=== PATIENT | male | born 1965 | race American Indian/Alaskan Native ===

== ENCOUNTER 2016-12-21 11:12 | Outpatient (CLI) | payer BC ==
--- NOTE | 2016-12-23 10:37 | Vascular Lab Report ---
LOWER EXTREMITY VENOUS DUPLEX: REASON FOR EXAM: Pain and swelling of the lower extremities. COMMENTS ON THE RIGHT: All veins visualized are freely compressible without evidence of internal echogenicity. Flow is spontaneous and phasic throughout. Greater saphenous vein incompetence is noted at the saphenofemoral junction and throughout the greater saphenous vein. The greater saphenous vein measures at about 5 mm in the proximal calf COMMENTS ON THE LEFT: Chronic nonocclusive deep venous thrombosis is noted in the femoral and common femoral veins. Incompetent greater saphenous vein is noted of the saphenofemoral junction and throughout its course. It measures about 6 mm in the proximal calf. The remaining veins visualized are freely compressible without evidence of internal echogenicity. Spontaneous and phasic flow is present proximally. IMPRESSION: Chronic Deep venous thrombosis in the left lower extremity. Bilateral incompetent greater saphenous vein.
== END 2016-12-21 11:13 | disposition home or self-care (01) ==
LOC: VAS 11:12
PROVIDERS: ATTEND Surgery Vascular Surgery
DX: I82.512 Chronic embolism and thrombosis of left femoral vein (principal); I87.2 Venous insufficiency (chronic) (peripheral); I87.002 Postthrombotic syndrome without complications of left lower extremity
CPT/HCPCS: 93970

== ENCOUNTER 2017-05-01 09:59 | Day surgery (SDC) | payer BC ==
[~2017-05-01 09:59] MED LIST: ANCEF/STERILE WATER 2 GM/20 ML 2 GM/20 ML SYRINGE IV NR; NACL 0.9% 1000 ML 1,000 ML IV SCH
[2017-05-01 10:55] LABS: Basophils % (Auto) 1.4 % (0.0-1.8); Eosinophils % (Auto) 2.1 % (0.0-4.3); Hematocrit 44.5 % (35.5-45.6); Mean Corpuscular HGB Conc 34 % (32-34); Mean Corpuscular Hemoglobin 30 pg (28-32); Mean Corpuscular Volume 89 fl (84-94); Platelet Count 170 K/mm3 (140-440); Red Cell Distribution Width 14.7 % (13.2-15.2)
[2017-05-01] MEDS ORDERED: NACL 0.9% 500 ML 500 ML IV SCH (11:00)
[2017-05-01 11:06] LABS: Anion Gap 16 mmol/L; BUN/Creatinine Ratio 18; Blood Urea Nitrogen 25 mg/dL (9-20); Carbon Dioxide 26 mmol/L (22-30); Chloride 103.8 mmol/L (98-107); Glucose 106 mg/dL (75-100); Potassium 3.8 mmol/L (3.6-5.0); Sodium 142 mmol/L (137-145)
[2017-05-01 11:08] LABS: INR 1.29 (0.87-1.13)
[2017-05-01 11:09] LABS: Partial Thromboplastin Time 33.2 Sec. (24.2-36.6)
[2017-05-01] MEDS ORDERED: XYLOCAINE 1% 20 mL ONE ×2 (13:07→14:41)
[2017-05-01] MEDS ORDERED: HEPARIN/NS 5000 UNIT/500ML(CATH LAB) 1,500 ML IR ONE (13:07)
[2017-05-01] MEDS ORDERED: ANCEF/STERILE WATER 2 GM/20 ML 2 GM/20 ML SYRINGE IV ONE (13:08)
[2017-05-01] MEDS: SUBLIMAZE ONE ×2 (13:23→14:02)
[2017-05-01] MEDS: VERSED IV ONE ×4 (13:23→14:41)
[2017-05-01] MEDS: HEPARIN 10,000 UNITS/10 ML ONE ×3 (13:29→14:45)
[2017-05-01] MEDS ORDERED: NORCO 5/325 PO ONE (15:27)
[2017-05-01] MEDS ORDERED: NORCO 5/325 PO PRN (17:03)
--- NOTE | 2017-05-01 17:03 | Short Stay Summary ---
Short Stay Documentation Date of service: 05/01/17 Narrative H&P: See H&P - History H&P: obtained from office - Allergies and Medications Current Medications: Allergies No Known Allergies Allergy (Unverified 04/29/13 09:24) Home Medications Medication Instructions Recorded Confirmed Last Taken Type Apixaban [Eliquis] 5 mg PO BID 05/01/17 05/01/17 05/01/17 09:00 History 5mg Sildenafil Citrate [Viagra] 50 mg PO PRN PRN 05/01/17 05/01/17 12/24/16 History 50mg Active Medications Cefazolin Sodium (Ancef/Sterile Water 2 Gm/20 Ml) 2 gm in 20 mls @ 80 mls/hr IV PREOP NR PRN Reason: Protocol Stop: 05/01/17 23:59 Sodium Chloride (Nacl 0.9% 500 Ml) 500 mls @ 50 mls/hr IV DIRECT CANDIDO Last Admin: 05/01/17 11:26 Dose: 50 mls/hr - Brief post op/procedure progress note Date of procedure: 05/01/17 Pre-op diagnosis: History of DVT with Occluded Left Iliac Venous Stents Post-op diagnosis: same Procedure: 1. Ultrasound-Guided Access Right Internal Jugular Vein 2. Ultrasound-Guided Access Right Femoral Vein 3. Catheter and in the Inferior Vena Cava 4. Radiologic Supervision and Interpretation Anesthesia: local, other (iv Sedation) Surgeon: SHAHRIAR BRAGG Estimated blood loss: minimal Pathology: none Condition: stable - Disposition Condition at discharge: Good Disposition: DC-01 TO HOME OR SELFCARE Short Stay Discharge Plan Activity: other (no heavy lifting for 24 hours) Wound: remove dressing (24 hours) Follow up with: SHAHRIAR BRAGG MD [Staff Physician] - 14 Days
--- NOTE | 2017-05-01 17:05 | Operative Report ---
Operative Report Operative Report: Date of Procedure: 05/01/2017 Pre-operative Diagnosis: History of DVT with Occluded Left Iliac Venous Stents Post-operative Diagnosis: Same Procedure(s): 1. Ultrasound-Guided Access Right Internal Jugular Vein 2. Ultrasound-Guided Access Right Femoral Vein 3. Catheter and in the Inferior Vena Cava 4. Radiologic Supervision and Interpretation Surgeon: Gareth Montero M.D. Commercial Artist Lettering: None Anesthesia: Local and IV sedation EBL: Minimal Counts: Correct Complications: None Condition: Stable Findings: Occlusion of left common iliac and external iliac venous stents Specimen: None Indication: The patient is a 52-year-old male with a history of chronic left lower extremity DVT and previous stents extending from the left common iliac vein to the distal extremity leg vein. He has chronic occlusion of the stents and significant swelling of the left lower extremity despite compliance with compression. He is in need of angioplasty and stenting of the iliac system. He was given the risk, benefits, and alternative procedures and consented to procedure. Description of Procedure: The patient was brought to the molder labels and laid in supine position. After he was adequately sedated his right neck and left thigh were prepped and draped in normal sterile fashion. Ultrasound was used to identify the left femoral vein and confirmed patency. The overlying skin and soft tissue was anesthetized with lidocaine and a small stab incision was made. An 18-gauge needle was used to access the vein and a 0.035 Bentson wire was advanced into the vein. A 5 Andorran sheath was placed via Seldinger technique technique. The dilator was removed and the sheath was flushed with heparinized saline. Ultrasound was used to identify the right internal jugular vein and confirm patency. The overlying skin and soft tissue was anesthetized with lidocaine. Micropuncture technique was used ultrasound guidance in the right internal jugular vein and a 0.035 Bentson wire was advanced into the central venous system under fluoroscopy. A 5 Andorran sheath was placed by Seldinger technique. The 5 Andorran sheath was exchanged for a 6 Andorran 45 cm destination sheath by Seldinger technique and the patient was systemically heparinized with 5000 units of heparin IV. Eventually the 6 Andorran sheath was exchanged for an 8 Andorran sheath and a 7 Andorran guide catheter was advanced through the AV Andorran sheath. The proximal portion of the stent was cannulated and a combination of wires and catheters were used to traversed the occluded stent without success. At this point I decided to abort the procedure to plan to perform an open venous bypass in the future. All wires and sheaths were removed and pressure was held to achieve hemostasis. The patient tolerated the procedure well. All sponge, needle, and estimate counts were correct. The patient was taken to the recovery area in stable condition.
[2017-05-01 17:42] VITALS: BP 133/81
--- NOTE | 2017-05-02 08:14 | Vascular Lab Report ---
MISCELLANEOUS VESSEL IDENTIFICATION: COMMENTS ON THE SCAN: The right internal jugular and left femoral veins were identified and under real-time ultrasound guidance was cannulated. IMPRESSION: Successful ultrasound guided veins cannulation.
== END 2017-05-01 18:30 | disposition home or self-care (01) ==
LOC: CATHLABREC 09:59
PROVIDERS: ATTEND Surgery Vascular Surgery
DX: T82.898A Other specified complication of vascular prosthetic devices, implants and grafts, initial encounter (principal); I10 Essential (primary) hypertension; I87.1 Compression of vein; I87.2 Venous insufficiency (chronic) (peripheral); Z79.01 Long term (current) use of anticoagulants; Z86.718 Personal history of other venous thrombosis and embolism; Z98.890 Other specified postprocedural states; Z98.1 Arthrodesis status; Y83.1 Surgical operation with implant of artificial internal device as the cause of abnormal reaction of the patient, or of later complication, without mention of misadventure at the time of the procedure
CPT/HCPCS: 36011; 36415; 76937; 80048; 85025; 85610; 85730; 99156; 99157; C1769; C1887; J0690; J1644; J2250; J3010; J7040; 36010

== ENCOUNTER 2017-05-09 08:00 | Inpatient (IN) | payer BC ==
[2017-05-09] MEDS ORDERED: NACL 0.45% 500 ML IV ONE (09:09)
[2017-05-09] MEDS ORDERED: MARCAINE 0.5% 30 ML INFILTRATI ONE (09:10)
[2017-05-09] MEDS ORDERED: RIFADIN ONE (09:10)
[2017-05-09] MEDS ORDERED: HEPARIN 10,000 UNITS/10 ML ONE (09:10)
[2017-05-09] MEDS ORDERED: SUBLIMAZE ONE (09:40)
[2017-05-09 09:47] LABS: INR 1.16 (0.87-1.13)
--- NOTE | 2017-05-09 09:48 | Anesthesia Consultation ---
Anesthesia Consult and Med Hx Date of service: 05/09/17 - Airway Anesthetic Teeth Evaluation: Good ROM Head & Neck: Adequate Mental/Hyoid Distance: Adequate Mallampati Class: Class II Intubation Access Assessment: Probably Good - Pre-Operative Health Status ASA Pre-Surgery Classification: ASA2 Proposed Anesthetic Plan: General - Pulmonary Hx Smoking: No Hx Sleep Apnea: No - Cardiovascular System Hx Peripheral Vascular Disease: Yes - Central Nervous System Hx Back Pain: Yes Hx Psychiatric Problems: No - Other Systems Hx Alcohol Use: No Hx Cancer: No Hx Obesity: Yes (BMI 36.1)
--- NOTE | 2017-05-09 09:48 | Anesthesia Day of Surgery ---
Anesthesia Day of Surgery - Day of Surgery Patient Examined: Yes Patient H&P Reviewed: Yes Patient is NPO: Yes
[2017-05-09] MEDS ORDERED: XYLOCAINE MPF 2% ONE (09:53)
[2017-05-09] MEDS ORDERED: DIPRIVAN 10 MG/ML IV ONE (09:53)
[2017-05-09] MEDS ORDERED: PEPCID PO NR (10:00)
[2017-05-09] MEDS ORDERED: VERSED IV NR (10:00)
[2017-05-09] MEDS ORDERED: NACL 0.9% IR ONE (10:31)
[2017-05-09] MEDS ORDERED: NACL 0.9% 500 ML IRRIGATION ONE (10:31)
[2017-05-09] MEDS ORDERED: HEPARIN 10,000 UNITS/10 ML IR ONE (10:31)
[2017-05-09] MEDS ORDERED: ePHEDrine SULFATE ONE (11:02)
[2017-05-09] MEDS ORDERED: ROBINUL ONE (11:09)
[2017-05-09] MEDS ORDERED: RIFADIN IV ONE (11:30)
[2017-05-09] MEDS ORDERED: DECADRON ONE (11:38)
[2017-05-09] MEDS ORDERED: NACL ONE (11:50)
[2017-05-09] MEDS ORDERED: DILAUDID ONE (11:54)
[2017-05-09] MEDS ORDERED: LACTATED RINGERS 1,000 ML ONE ×2 (14:56)
[2017-05-09] MEDS ORDERED: ZOFRAN ONE (15:05)
[2017-05-09] MEDS ORDERED: NEOSTIGMINE ONE (15:20)
[2017-05-09] MEDS ORDERED: ZEMURON IV ONE (15:30)
--- NOTE | 2017-05-09 16:05 | Post Anesthesia Evaluation ---
- Post Anesthesia Evaluation Patient Participated: Yes Airway Patent: Yes Stable Respiratory Function: Yes Temp > 96.8F: Yes Pain Manageable: Yes Adequeate Hydration: Yes Anesthesia Complications: No
[2017-05-09] MEDS ORDERED: ZOFRAN IV PRN (16:33)
[2017-05-09] MEDS ORDERED: NARCAN 0.4 MG/1 ML IV PRN (16:33)
[2017-05-09] MEDS ORDERED: MORPHINE IV PRN ×2 (16:33→16:35)
--- NOTE | 2017-05-09 16:33 | Operative Report ---
Operative Report Operative Report: Date of Procedure: 05/09/2017 Pre-operative Diagnosis: History of DVT with Occluded Left Iliac Vein Stents and Left Lower Extremity Venous Hypertension Post-operative Diagnosis: Same Procedure(s): 1. Left Femoral Vein to Right Femoral Vein Bypass with 8 mm Ringed Propaten Graft 2. Creation of Left SFA to Left Femoral Vein AVG with 4-7 Propaten Step Graft ( [facility] Procedure) Surgeon: Gareth Montero M.D. Ui Developer With Angular Js: None Anesthesia: Gen. Endotracheal Anesthesia EBL: 400 mL Counts: Correct Complications: None Condition: Stable Findings: Significant venous hypertension in the left common femoral vein. Recurrent Left Inguinal Hernia. Specimen: None Indication: The patient is a 52 yo female with a history of extensive left lower extremity DVT that was initially treated with anticoagulation. 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 He initially improved however he returned approximately one year after the procedure with complaints of recurrent swelling. It was discovered that his stents had occluded. There were attempts to recannulize the stents without success. Despite compliance with compression the patient continued to suffer from significant left lower extremity swelling and discomfort. He is in need of a bypass to decompress his left leg venous hypertension. He was given the risks, benefits, and alternative procedures and consented to the procedure. Description of Procedure: The patient was brought to the operating room and laid in supine position. After general endotracheal anesthesia was achieved the patient was prepped and draped in normal sterile fashion. Longitudinal incisions were created and bilateral groins and sharp dissections were used to carry the incision down to bilateral common femoral veins. Bilateral common femoral veins were dissected circumferentially and controlled with Vesseloops. Additionally in the left groin and the left proximal superficial femoral artery was dissected circumferentially controlled with vessel loops. The anterior abdominal wall was dissected out in each groin and a tunnel was created and the 8 mm ringed Propaten graft was pulled through the tunnel and care was taken to ensure that the graft was not kinked or twisted. Once this was assured the patient was systemically heparinized with 5000 units of heparin IV and this was redosed at 45 minute intervals until the case was completed. Once the heparin had circulated for 3 minutes the left common femoral vein was clamped and a venotomy was created with an 11 blade and Chappell scissors and the 8 mm graft was beveled and end-to-side anastomosis was created using 2 5-0 Prolenes in running fashion. Once the anastomosis was completed the clamps were removed allowing flow to the graft had excellent flow. The graft was then clamped using a DeBakey clamp. Hemostasis at the anastomosis was achieved with clot. I then used clamps to occlude flow in the proximal SFA and created an arteriotomy using an 11 blade and Chappell scissors. I used the 4-7 Propaten step graft. Using the 4 mm end I created an end-to-side anastomosis between the SFA and the graft using 2 6-0 Prolenes in running fashion. After completing the anastomosis I released the clamps on SFA and then clamped the graft just distal to the anastomosis. I then cut the graft to length and beveled the proximal and and clamped the distal left common femoral vein. I created a venotomy, just distal to the previously created anastomosis, using an 11 blade and Chappell scissors and created an end-to-side anastomosis using 2 5-0 Prolenes in running fashion. After creating the anastomosis I released all clamps allowing flow through the AV graft and into the AV graft as well as the femorofemoral graft which had adequate flow. I reclamped the graft and then turned my attention to the right groin. I cut the graft to length and then removed the rings from the distal portion of graft. I beveled the graft and then clamped the right common femoral vein. I created a venotomy using an 11 blade and Chappell scissors. I then created an end-to-side anastomosis using 2 5-0 Prolenes in running fashion. Prior to completing the anastomosis I flashed the vein as well as the bypass graft. I then flushed both with heparinized saline. I completed the anastomosis the removed all clamps allowing flow through all grafts. There was adequate flow which was assessed by palpating it through in the right common femoral vein. Hemostasis within all wounds was achieved with a combination of FloSeal and quick clot. Once hemostasis was achieved the wounds were anesthetized with 0.5% Marcaine. Both wounds were then closed in 3 layers using a 3-0 Vicryl and running fashion and the deep layer, a thrill Vicryl in a fashion the deep dermal layer, and a 4-0 Monocryl in running fashion and the subcuticular layer. The skin was then dressed with Dermabond. The patient tolerated the procedure well. All sponge, needle, and isthmic were correct. The patient was taken to the recovery area in stable condition.
[2017-05-09] MEDS ORDERED: ANCEF/NS 1 GM/50 ML 1 GM/50 ML BAG IV SCH (17:00)
[2017-05-09] MEDS: ELIQUIS PO SCH ×2 (17:13→21:08)
[2017-05-09] MEDS: NACL 0.9% 1000 ML 1,000 ML IV SCH ×2 (18:44→21:04)
[2017-05-09] MEDS: MORPHINE IV PRN (21:03)
[2017-05-09] MEDS: ceFAZolin 1 GM in NACL 0.9% 20 ML IV SCH (22:18)
[2017-05-10] MEDS: ceFAZolin 1 GM in NACL 0.9% 20 ML IV SCH (05:55)
[2017-05-10] MEDS: NACL 0.9% 1000 ML 1,000 ML IV SCH (06:06)
[2017-05-10 06:29] LABS: Hematocrit 38.3 % (35.5-45.6); Hemoglobin 12.5 gm/dl (11.8-15.2)
[2017-05-10 06:56] LABS: Calcium 7.9 mg/dL (8.4-10.2); Chloride 104.5 mmol/L (98-107); Potassium 4.2 mmol/L (3.6-5.0)
[2017-05-10] MEDS: MORPHINE IV PRN (09:32)
[2017-05-10] MEDS ORDERED: LOVENOX SUB-Q SCH (10:00)
[2017-05-10] MEDS: ELIQUIS PO SCH ×2 (11:31→23:21)
[2017-05-10] MEDS: FISH OIL PO SCH (11:31)
[2017-05-10] MEDS: NORCO 5/325 PO PRN ×2 (12:33→19:54)
--- NOTE | 2017-05-10 12:59 | Progress Note ---
Assessment and Plan Patient is doing well postoperative. DC IV fluids DC oxygen supplementation Increase activity Encouraged the patient to use oral analgesics. Discharge from the hospital once patient tolerates increase in activity levels with adequate pain relief using oral analgesics. - Patient Problems (1) Venous hypertension of left lower extremity Current Visit: Yes Status: Acute Subjective Date of service: 05/10/17 Interval history: Patient is awake and alert. He complains of mild to moderate incisional discomfort. Objective - Constitutional Vitals: Vital Signs - 12hr 05/10/17 05/10/17 05/10/17 05:22 07:38 08:46 Temperature 98.7 F 99.4 F Pulse Rate 84 81 Respiratory 20 18 Rate Blood Pressure 99/50 120/58 O2 Sat by Pulse 94 94 92 Oximetry General appearance: Present: no acute distress - EENT Eyes: EOM intact ENT: hearing intact - Respiratory Respiratory effort: normal Extremities: no ischemia, normal temperature, abnormal (bilateral groin incisions are intact) Extremity abnormal: edema (of the left lower extremity compared to the right) - Neurologic Neurologic: no focal deficits - Psychiatric Psychiatric: appropriate mood/affect, intact judgment & insight, cooperative - Labs CBC & Chem 7: 05/10/17 06:02 05/10/17 06:02 Labs: Abnormal lab results 05/10/17 Range/Units 06:02 Creatinine 1.6 H (0.8-1.5) mg/dL Glucose 147 H (75-100) mg/dL Calcium 7.9 L (8.4-10.2) mg/dL
[2017-05-11] MEDS: NORCO 5/325 PO PRN ×2 (02:30→11:10)
--- NOTE | 2017-05-11 09:33 | Discharge Summary ---
Providers - Providers Date of Admission: 05/09/17 08:24 Date of discharge: 05/11/17 Attending physician: GARETH MONTERO Primary care physician: JOSY TILLEY Hospitalization Reason for admission: LLE venous htn Condition: Good Procedures: Operative Report Operative Report: Date of Procedure: 05/09/2017 Pre-operative Diagnosis: History of DVT with Occluded Left Iliac Vein Stents and Left Lower Extremity Venous Hypertension Post-operative Diagnosis: Same Procedure(s): 1. Left Femoral Vein to Right Femoral Vein Bypass with 8 mm Ringed Propaten Graft 2. Creation of Left SFA to Left Femoral Vein AVG with 4-7 Propaten Step Graft ( [facility] Procedure) Surgeon: Gareth Montero M.D. Cardiovascular Specialist: None Anesthesia: Gen. Endotracheal Anesthesia EBL: 400 mL Counts: Correct Complications: None Condition: Stable Findings: Significant venous hypertension in the left common femoral vein. Recurrent Left Inguinal Hernia. Specimen: None Indication: The patient is a 52 yo female with a history of extensive left lower extremity DVT that was initially treated with anticoagulation. 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 He initially improved however he returned approximately one year after the procedure with complaints of recurrent swelling. It was discovered that his stents had occluded. There were attempts to recannulize the stents without success. Despite compliance with compression the patient continued to suffer from significant left lower extremity swelling and discomfort. He is in need of a bypass to decompress his left leg venous hypertension. He was given the risks, benefits, and alternative procedures and consented to the procedure. Hospital course: Pt admitted with an occluded LLE iliac vein and venous htn in prep for the above stated surgery which was completed without issue. Post operatively he was transferred to the PACU and then to the med/surg floor. His activities were increased and tolerated. He c/o mild incisional discomfort which was controlled with oral analgesics. By POD 2, the pt appears stable for d/c home. D/c instructions were given at the bedside. All questions were asked and answered. Pt will f/u in 2wks. Disposition: DC-01 TO HOME OR SELFCARE - Discharge Diagnoses (1) Venous hypertension of left lower extremity Status: Acute Core Measure Documentation - Palliative Care Palliative Care/ Comfort Measures: Not Applicable - Core Measures Any of the following diagnoses?: history only Exam - Constitutional Vitals: Temp Pulse Resp BP Pulse Ox 99.8 F H 88 16 105/55 98 05/11/17 07:17 05/11/17 07:17 05/11/17 07:17 05/11/17 07:17 05/11/17 07:17 General appearance: Present: no acute distress - EENT Eyes: Present: EOM intact ENT: hearing intact - Neck Neck: Present: supple - Respiratory Respiratory effort: normal - Extremities Extremities: no ischemia, normal temperature Extremity abnormal: edema (LLE edema) - Psychiatric Psychiatric: appropriate mood/affect, intact judgment & insight, cooperative - Neurologic Neurologic: no focal deficits Plan Activity: advance as tolerated Weight Bearing Status: Weight Bear as Tolerated Diet: regular Wound: keep clean and dry Follow up with: GARETH MONTERO MD [Staff Physician] - 14 Days Prescriptions: HYDROcodone/APAP 7.5-325 [[place] 7.5/325] 1 each PO Q6HR PRN #50 tablet PRN Reason: Pain
[2017-05-11] MEDS: ELIQUIS PO SCH (11:08)
[2017-05-11] MEDS: FISH OIL PO SCH (11:08)
[2017-05-11 14:22] VITALS: BP 137/70
== END 2017-05-11 13:30 | disposition home or self-care (01) | DRG 253 ==
LOC: 3A 08:24 → 3B-SURG 17:08
PROVIDERS: ADMIT Surgery Vascular Surgery; ATTEND Surgery Vascular Surgery
PROC: 061N0JY Bypass Left Femoral Vein to Lower Vein with Synthetic Substitute, Open Approach (ICD-10-PCS; principal; 2017-05-09)
PROC: 041L0JS Bypass Left Femoral Artery to Lower Extremity Vein with Synthetic Substitute, Open Approach (ICD-10-PCS; 2017-05-09)
DX: T82.868A Thrombosis due to vascular prosthetic devices, implants and grafts, initial encounter (principal); I87.1 Compression of vein; Y83.8 Other surgical procedures as the cause of abnormal reaction of the patient, or of later complication, without mention of misadventure at the time of the procedure; I87.092 Postthrombotic syndrome with other complications of left lower extremity; Y92.89 Other specified places as the place of occurrence of the external cause; Z90.49 Acquired absence of other specified parts of digestive tract; Z83.3 Family history of diabetes mellitus; Z98.1 Arthrodesis status; M54.9 Dorsalgia, unspecified; E66.9 Obesity, unspecified; Z68.36 Body mass index [BMI] 36.0-36.9, adult; K40.91 Unilateral inguinal hernia, without obstruction or gangrene, recurrent; I80.9 Phlebitis and thrombophlebitis of unspecified site
CPT/HCPCS: 36415; 80048; 82962; 85014; 85018; 85610; 94760; C1768; C9250; J0690; J1100; J1170; J1644; J2250; J2270; J2405; J2704; J2710; J3010; J3490; J7030; J7040; J7120

== ENCOUNTER 2017-09-21 06:48 | Day surgery (SDC) | payer BC ==
[~2017-09-21 06:48] MED LIST changes: -NACL 0.9% 1000 ML 1,000 ML IV SCH
[2017-09-21 07:44] LABS: Basophils % (Auto) 0.8 % (0.0-1.8); Eosinophils # (Auto) 0.1 K/mm3 (0.0-0.4); Eosinophils % (Auto) 1.9 % (0.0-4.3); Hematocrit 42.3 % (35.5-45.6); Hemoglobin 14.2 gm/dl (11.8-15.2); Lymphocytes # (Auto) 1.7 K/mm3 (1.2-5.4); Lymphocytes % (Auto) 44.6 % (13.4-35.0); Mean Corpuscular HGB Conc 34 % (32-34); Mean Corpuscular Hemoglobin 30 pg (28-32); Mean Corpuscular Volume 88 fl (84-94); Monocytes # (Auto) 0.4 K/mm3 (0.0-0.8); Monocytes % (Auto) 9.1 % (0.0-7.3); Platelet Count 155 K/mm3 (140-440); Red Blood Count 4.82 M/mm3 (3.65-5.03); Red Cell Distribution Width 15.2 % (13.2-15.2)
[2017-09-21 07:53] LABS: INR 1.18 (0.87-1.13)
[2017-09-21] MEDS: NACL 0.9% 1000 ML 1,000 ML IV SCH ×2 (08:02→09:37)
[2017-09-21 08:24] LABS: BUN/Creatinine Ratio 14; Blood Urea Nitrogen 20 mg/dL (9-20); Calcium 9.1 mg/dL (8.4-10.2); Hemolysis Index 7
[2017-09-21] MEDS ORDERED: HEPARIN/NS 5000 UNIT/500ML(CATH LAB) 1,000 ML IR ONE ×2 (08:26→10:12)
[2017-09-21] MEDS ORDERED: ANCEF/STERILE WATER 2 GM/20 ML 2 GM/20 ML SYRINGE IV ONE (08:27)
[2017-09-21] MEDS ORDERED: NACL 0.9% 500 ML 500 ML ONE (08:27)
[2017-09-21] MEDS ORDERED: ATROPINE 0.1% (CARDIAC) ONE (09:32)
[2017-09-21] MEDS: SUBLIMAZE ONE ×6 (09:38→11:06)
[2017-09-21] MEDS: VERSED IV ONE ×7 (09:38→11:33)
[2017-09-21] MEDS: XYLOCAINE 2% INFILTRATI ONE ×5 (09:41→11:45)
--- NOTE | 2017-09-21 10:11 | Short Stay Summary ---
Short Stay Documentation Date of service: 09/21/17 Narrative H&P: 52 year old male with left iliac vein occlusion with left lower extremity significant symptoms of swelling and pain status post fem-fem venous bypass who presents for attempted percutaneous thrombectomy of the fem-fem bypass. - History Principal diagnosis: DVT of the left lower extremity and thrombosed fem-fem bypass H&P: obtained from office - Allergies and Medications Current Medications: Allergies No Known Allergies Allergy (Unverified 05/08/17 10:18) Home Medications Medication Instructions Recorded Confirmed Last Taken Type Apixaban [Eliquis] 5 mg PO BID 05/01/17 09/21/17 09/20/17 15:00 History Active Medications Cefazolin Sodium (Ancef/Sterile Water 2 Gm/20 Ml) 2 gm in 20 mls @ 80 mls/hr IV PREOP NR; Protocol Stop: 09/21/17 23:59 Sodium Chloride (Nacl 0.9% 1000 Ml) 1,000 mls @ 42 mls/hr IV DIRECT CANDIDO Last Admin: 09/21/17 09:37 Dose: 42 mls/hr - Physical exam General appearance: no acute distress Lungs: Normal air movement Gastrointestinal: normal Extremities: normal temperature, normal color, abnormal (3+ swelling LLE) - Brief post op/procedure progress note Date of procedure: 09/21/17 Pre-op diagnosis: thrombosed fem fem venous bypass with extensive DVT Post-op diagnosis: other (chronic thrombosed fem fem venous bypass with chronic left ileofemoral DVT) Procedure: IVC filter multiple venous site access with attempted revasc of the fem fem bypass - could not cross the anastamosis Anesthesia: local (w/ conscious sedation) Findings: reversed with narcan, tolerated procedure well Surgeon: RODRIGO SPARROW Estimated blood loss: minimal Condition: stable - Hospital course Hospital course: Tolerated procedure well. No immediate post procedural issues. Had to reverse patient with narcan during procedure for transitory respiratory depression. - Disposition Condition at discharge: Stable Disposition: DC-01 TO HOME OR SELFCARE - Discharge Diagnoses (1) Chronic deep vein thrombosis of ileofemoral vein Status: Acute (2) Venous hypertension of left lower extremity Status: Acute Short Stay Discharge Plan Activity: advance as tolerated Weight Bearing Status: Weight Bear as Tolerated Diet: advance as tolerated Wound: keep clean and dry, other (keep dry for 24-48 hrs, no soaking in tub) Follow up with: RODRIGO SPARROW MD [Staff Physician] - 7 Days JOSY TILLEY MD [Primary Care Provider] - 7 Days Forms: Post Arteriogram Instruct
--- NOTE | 2017-09-21 10:11 | Operative Report ---
Operative Report Operative Report: EXAM: 1. Ultrasound guided access of the right internal jugular 2. IVC filter placement and inferior venacava venography 3. Selection of the right common iliac vein with venography 4. Ultrasound guided access of the left superficial femoral vein 5. Venography of the left lower extremity 6. Ultrasound guided access of the femoral-femoral bypass DATE: 09/21/17 INDICATION: Left lower extremity DVT with femoral femoral reconstruction and iliac vein stenting all of which thrombosed who presents for thrombectomy. MEDICATIONS: Continuous cardiopulmonary monitoring was performed during this procedure. Please review the nursing record for a list of all medications. Narcan had to be administered due to respiratory depression which resulted in resolution of respiratory depression. DEVICES: Retrievable [place] IVC filter. TRANSPORTATION MUSEUM HELPER: RODRIGO SPARROW MD CONTRAST: Please see laborer pullet farm report for details. PROCEDURE: The risks, benefits, and alternatives were discussed; written informed consent was obtained. The patient was transported to the angiography suite in stable condition. The patient was transported on the table and the right internal jugular was assessed with ultrasound to ensure patency. The patient was prepped and draped in a sterile fashion. The right internal jugular vein was accessed with an 21-gauge needle under direct ultrasound guidance. The right internal jugular vein was patent. 0.018 inch wire was advanced through the needle and the needle was exchanged for a transitional dilation. Inner dilator and wire was removed. 0.035 inch wire was passed into the inferior vena cava. The transitional dilator was exchanged for a 5 [place]uv[place] sheath and a 5 [place]uv[place] pigtail catheter was advanced over the wire and passed into the inferior vena cava. The right common iliac vein was then selected. Digital subtraction angiography was performed demonstrating patency of the right common iliac vein. The IVC was then selected. The table was locked. Digital subtraction venography was performed. Digital subtraction venography of the inferior vena cava demonstrates no evidence of inferior vena cava thrombus. The inferior vena cava is normal in size. Renal vein inflow is visualized. The inferior vena cava is adequate to accommodate an IVC filter. The left common iliac vein is occluded. The pigtail was removed over a 0.035 inch wire and the sheath was removed over the wire. The IVC filter sheath and introducer were advanced over the wire under direct fluoroscopic guidance. The wire and introducer were removed. The IVC filter deployment system was advanced through the sheath and properly positioned under fluoroscopic guidance. The IVC filter was deployed under direct fluoroscopic guidance. [place] IVC filter is properly positioned, below the renal veins and above the iliocaval confluence. Venography was performed through the sheath to confirm position. The deployment system, and sheath were removed. Pressure was held until hemostasis was achieved.. Dermabond and pressure dressing applied. Attention was then turned towards the left thigh. Under direct ultrasound guidance, the left superficial femoral vein was accessed with a 21-gauge micropuncture needle. The left superficial then was partially compressible. 0.018 inch wire was passed through the needle into the superficial femoral vein. Transitional dilator was advanced over the wire. Digital subtraction angiography was performed demonstrating extensive collaterals arising from the left superficial femoral vein and profunda femoral vein with occlusion of the common femoral vein and iliac vein. Transitional dilator was exchanged for 5 [place] sheath. I attempted to cross the femoral-femoral venous bypass with the use of Glidewire advantage, and multiple catheters and wires including 0.018-gauge crossing wires. Ultrasound was used to evaluate the femoral-femoral venous bypass graft which is occluded. Under direct ultrasound guidance, 21-gauge micropuncture needle was used to access the femoral-femoral venous bypass graft. 0.018 inch wire was passed through the needle. Needle was exchanged for the inner portion of a transitional dilator. Multiple 0.018 inch wire was within passed through the inner portion of the transitional dilator and an attempt to cross the left femoral anastomosis of the femoral-femoral venous bypass graft. Despite attempting to cross up multiple 0.018 inch wires, this was unsuccessful. Therefore, the transitional dilator was removed and upsized to a 0.035 inch transitional dilator. Glidewire advantage was attempted but this was unsuccessful. Transitional dilator was exchanged for a 4 [place]uvian sheath. The catheter and Glidewire advantage and 0.018 inch wires were used in an attempt to cross the occlusion. This was ultimately unsuccessful. Left femoral sheath was then upsized to a 7 [place]uv[place] sheath and I attempted to cross the lesion again but this was unsuccessful. All wires, catheters, and sheath were removed. Pressure was held until hemostasis was achieved. Pressure dressing applied. Dermabond applied. The patient was transferred from the angiography suite to recovery area in stable condition. FINDINGS: Please see procedure note above. IMPRESSION: Successful placement of a retrievable [place] IVC filter. Successful selection of the right common iliac vein with venography. Successful left lower extremity venogram. Inability to cross the femoral anastomoses of the femoral-femoral bypass despite bidirectional access and variety of wires and catheters.
[2017-09-21] MEDS: HEPARIN 10,000 UNITS/10 ML ONE ×2 (10:35→11:15)
[2017-09-21] MEDS ORDERED: SUBLIMAZE ONE (11:06)
[2017-09-21] MEDS ORDERED: NARCAN 2 MG/2 ML ONE (11:15)
[2017-09-21] MEDS ORDERED: ELIQUIS ONE (11:53)
[2017-09-21 17:19] VITALS: BP 124/63
== END 2017-09-21 17:05 | disposition home or self-care (01) ==
LOC: CATHLABREC 06:48
PROVIDERS: ATTEND Radiology Diagnostic Radiology
DX: T82.868A Thrombosis due to vascular prosthetic devices, implants and grafts, initial encounter (principal); I87.1 Compression of vein; I82.522 Chronic embolism and thrombosis of left iliac vein; Z79.01 Long term (current) use of anticoagulants; Z98.890 Other specified postprocedural states; Y83.2 Surgical operation with anastomosis, bypass or graft as the cause of abnormal reaction of the patient, or of later complication, without mention of misadventure at the time of the procedure
CPT/HCPCS: 36012; 36415; 37191; 75822; 76937; 80048; 85025; 85384; 85610; 86850; 86900; 86901; C1769; C1880; C1894; J0690; J1644; J2250; J2310; J3010; J7030; J7040; 75820; J0461; Q9967

== ENCOUNTER 2018-10-02 06:44 | Day surgery (SDC) | payer BC, OTHER ==
[2018-10-02 07:55] LABS: Hematocrit 42.5 % (35.5-45.6); Hemoglobin 14.2 gm/dl (11.8-15.2); Mean Corpuscular HGB Conc 33 % (32-34); Mean Corpuscular Volume 91 fl (84-94); Platelet Count 151 K/mm3 (140-440)
[2018-10-02] MEDS ORDERED: NACL 0.9% 500 ML 500 ML IV SCH (08:00)
[2018-10-02 08:06] LABS: INR 1.21 (0.87-1.13)
[2018-10-02 08:07] LABS: Partial Thromboplastin Time 28.9 Sec. (24.2-36.6)
[2018-10-02 08:08] LABS: BUN/Creatinine Ratio 12; Blood Urea Nitrogen 17 mg/dL (9-20); Calcium 8.8 mg/dL (8.4-10.2); Hemolysis Index 10
[2018-10-02] MEDS ORDERED: VERSED ONE (08:17)
[2018-10-02] MEDS ORDERED: SUBLIMAZE ONE (08:17)
[2018-10-02] MEDS ORDERED: ANCEF/STERILE WATER 2 GM/20 ML 0 GM/0 ML SYRINGE IV ONE (08:18)
[2018-10-02] MEDS ORDERED: HEPARIN/NS 5000 UNIT/500ML(CATH LAB) 1,000 ML IR ONE (08:18)
[2018-10-02] MEDS ORDERED: HEPARIN 10,000 UNITS/10 ML ONE (08:18)
[2018-10-02] MEDS ORDERED: XYLOCAINE 2% INFILTRATI ONE (08:20)
--- NOTE | 2018-10-02 10:10 | Short Stay Summary ---
Short Stay Documentation Date of service: 10/02/18 Narrative H&P: See H&P - History H&P: obtained from office - Allergies and Medications Current Medications: Allergies No Known Allergies Allergy (Verified 10/02/18 07:22) Home Medications Medication Instructions Recorded Confirmed Last Taken Type Apixaban [Eliquis] 5 mg PO BID 05/01/17 10/02/18 10/01/18 History Aspirin [Aspirin TAB] 325 mg PO QDAY 10/02/18 10/02/18 10/01/18 History Sildenafil Citrate 100 mg PO DAILY PRN 10/02/18 10/02/18 09/18/18 History Active Medications Sodium Chloride (Nacl 0.9% 500 Ml) 500 mls @ 50 mls/hr IV DIRECT CANDIDO Last Admin: 10/02/18 08:55 Dose: 100 mls Documented by: - Brief post op/procedure progress note Date of procedure: 10/02/18 Pre-op diagnosis: History of DVT and PE with IVC Filter Post-op diagnosis: same Procedure: 1. Ultrasound-Guided Access Right Internal Jugular Vein 2. Inferior Venacavogram 3. Retrieval of IVC Filter 4. Radiologic Supervision and Interpretation Anesthesia: local, other (Monitored Moderate Sedation) Surgeon: SHAHRIAR BRAGG Estimated blood loss: minimal Pathology: none Condition: stable - Disposition Condition at discharge: Good Disposition: DC-01 TO HOME OR SELFCARE Short Stay Discharge Plan Activity: other (no strenuous activity for 24 hours) Wound: remove dressing (24 hours) Follow up with: SHAHRIAR BRAGG MD [Staff Physician] - 14 Days Prescriptions: HYDROcodone/APAP 7.5-325 [[place]ord 7.5/325] 1 each PO Q6HR PRN #30 tablet PRN Reason: Pain
--- NOTE | 2018-10-02 10:20 | Operative Report ---
Operative Report Operative Report: Date of Procedure: 10/02/2018 Pre-operative Diagnosis: History of PE and DVT with Retained IVC Filter Post-operative Diagnosis: Same Procedure(s): 1. Ultrasound-Guided Access Right Internal Jugular Vein 2. Inferior Venacavogram 3. Retrieval of IVC Filter 4. Radiologic Supervision and Interpretation Surgeon: Gareth Montero M.D. Supervisor [place]illing: None Anesthesia: Local and Monitored Moderate Sedation EBL: Minimal Counts: Correct Complications: None Condition: Stable Findings: The inferior vena cava and IVC filter were free of thrombus. The IVC filter was removed without complication and all legs were intact upon removal. Specimen: IVC filter was removed and discarded. Indication: The patient is a 53-year-old male with a history of previous left lower extremity DVT and PE. He underwent previous left femoral vein to right femoral vein bypass that subsequently required thrombectomy. During the thrombectomy required placement of IVC filter to prevent PE. He is now in need of retrieval of the filter. He was given the risks, benefits, and alternative procedures and consented to the procedure. Description of Procedure: The patient was brought to the parking lot laborer and laid in supine position. After timeout was performed and is right neck was prepped and draped in normal sterile fashion. Ultrasound was used to identify the right internal jugular vein and confirmed patency and then the overlying skin and soft tissue was anesthetized with 1% lidocaine. A micropuncture needle was used ultrasound guidance to enter the internal jugular vein and a 0.018 wire was advanced into the vein. The micropuncture sheath was then advanced into the vein and a 0.035 J-wire was advanced into the IVC under fluoroscopy. The micropuncture sheath was then exchanged for 5 [place] sheath and then the tract was serially dilated until the [place] IVC filter retrieval system could be inserted and advanced down to the level of the IVC filter. The inner dilator was removed and a inferior venacavogram was performed that revealed brisk flow of contrast throughout the inferior vena cava and that the inferior vena cava as well as IVC filter was free of thrombus. I advanced the snare and was able to place it around the retrieval hook. After snaring the hook advances system down over the IVC filter and pulled back into the retrieval system. After removal of the filter I performed another inferior vena cavogram that revealed there was no injury to the inferior vena cava. At this point I removed the system and pressure was held on the entry site until hemostasis was achieved. Once hemostasis was achieved a sterile dressing was placed on the site and the patient was transported to the recovery area in stable condition.
[2018-10-02 16:45] VITALS: BP 109/62
== END 2018-10-02 11:00 | disposition home or self-care (01) ==
LOC: CATHLABREC 06:44
PROVIDERS: ATTEND Surgery Vascular Surgery
DX: I82.522 Chronic embolism and thrombosis of left iliac vein (principal); I87.302 Chronic venous hypertension (idiopathic) without complications of left lower extremity; G43.909 Migraine, unspecified, not intractable, without status migrainosus; E66.9 Obesity, unspecified; Z68.34 Body mass index [BMI] 34.0-34.9, adult; Z79.899 Other long term (current) drug therapy; Z90.49 Acquired absence of other specified parts of digestive tract; Z98.890 Other specified postprocedural states; Z82.49 Family history of ischemic heart disease and other diseases of the circulatory system
CPT/HCPCS: 36415; 37193; 75825; 76937; 80048; 85027; 85610; 85730; C1733; J1644; J2250; J3010; J7040; J0690; Q9967